=== PATIENT | female | born 1975 | race Caucasian/White ===

== ENCOUNTER 2018-12-27 14:45 | Emergency (ER) | payer OTHER ==
[~2018-12-27] VITALS: Ht 162.6 cm; Wt 56.7 kg
[~2018-12-27 14:45] MED LIST: ALPRAZOLAM PO; CELEXA 20 MG TA20 MG PO; HYDROCODON-ACE1 EACH PO; IBUPROFEN 600600 M1 PO; KLOR-CON 1010 MEQ PO; NORCO 10-325 T1 EACH PO; NORCO 5-325 TA1 EACH PO; ONDANSETRON ODT4 MG PO; PHENERGAN 25 MG25 M1 PO; PHENERGAN25 MG RE; PHENERGAN50 MG RC; PHENERGAN50 MG RECTAL; POTASSIUM20 PO; PRENATAL COMPL1 EACH PO; PRENATAL PO; PROMS25 WY RECTAL; PROTONIX40 M2; PROTONIX40 M2 PO; XANAX 0.25 MG0.25 MG PO; XANAX 1 MG TABLE1 MG PO; ZOFRAN ODT4 MG PO
[2018-12-27] MEDS ORDERED: HYDROCODONE-AP1 EAC6 PO (15:46)
[2018-12-27 15:54] VITALS: BP 119/66
== END 2018-12-27 15:54 | disposition home or self-care (01) ==
LOC: ER 14:45
DX: S61.411A Laceration without foreign body of right hand, initial encounter (principal); F41.9 Anxiety disorder, unspecified; Z90.49 Acquired absence of other specified parts of digestive tract; Z98.890 Other specified postprocedural states; W25.XXXA Contact with sharp glass, initial encounter; Y93.G1 Activity, food preparation and clean up; Y92.511 Restaurant or cafe as the place of occurrence of the external cause; Y99.0 Civilian activity done for income or pay